=== PATIENT | female | born 1980 | race American Indian/Alaskan Native ===

== ENCOUNTER 2021-08-05 20:26 | Emergency (ER) | payer SELFPAY ==
[2021-08-06] MEDS ORDERED: SODIUM CHLORIDE 0.9% 1000 ML 1,000 ML IV ONE (01:25)
[2021-08-06] MEDS ORDERED: ONDANSETRON 4 MG/2 ML INJ IV ONE (01:25)
[2021-08-06] MEDS ORDERED: MORPHINE 4 MG/1 ML INJ IV ONE (01:25)
[2021-08-06 02:22] LABS: Alanine Aminotransferase 14 units/L (7-56); Albumin 3.4 g/dL (3.9-5); Blood Urea Nitrogen 7 mg/dL (7-17); Calcium 7.8 mg/dL (8.4-10.2); Hemolysis Index 12
[2021-08-06 02:41] LABS: Hematocrit 32.2 % (30.3-42.9); Hemoglobin 10.7 gm/dl (10.1-14.3); Mean Corpuscular HGB Conc 33 % (30-34); Mean Corpuscular Volume 82 fl (79-97); Platelet Count 448 K/mm3 (140-440); Red Blood Count 3.95 M/mm3 (3.65-5.03); Red Cell Distribution Width 27.8 % (13.2-15.2)
[2021-08-06 02:44] LABS: BUN/Creatinine Ratio 12
[2021-08-06 03:42] LABS: Bilirubin,Urine NEG (Negative); Color,Urine Yellow (Yellow)
[2021-08-06 03:43] LABS: Bacteria,Urine 1+ /HPF (Negative); Blood,Urine MOD (Negative); Urobilinogen,Urine < 2.0 mg/dL (<2.0)
--- NOTE | 2021-08-06 03:55 | Cat Scan Report ---
CT ABDOMEN AND PELVIS WITH CONTRAST INDICATION / CLINICAL INFORMATION: abdominal pain, N/V. TECHNIQUE: Axial CT images were obtained through the abdomen and pelvis after IV contrast. All CT sc ans at this location are performed using CT dose reduction for [facility] by means of automated exposure c ontrol. COMPARISON: None available. FINDINGS: LOWER CHEST: No significant abnormality. LIVER: Large with fatty infiltration. GALLBLADDER: No significant abnormality. BILE DUCTS: No significant abnormality. PANCREAS: No significant abnormality. SPLEEN: No significant abnormality. ADRENALS: No significant abnormality. RIGHT KIDNEY / URETER: No significant abnormality. LEFT KIDNEY / URETER: No significant abnormality. STOMACH / SMALL BOWEL: No significant abnormality. COLON: Scattered right colonic fluid without wall thickening. APPENDIX: Nonvisualized. PERITONEUM: No free fluid. No free air. No fluid collection. LYMPH NODES: No significant adenopathy. VASCULAR STRUCTURES: No significant abnormality. URINARY BLADDER: No significant abnormality. REPRODUCTIVE ORGANS: Uterine enlargement. 4 cm low density lesion at the fundus. Faint 5.5 cm lesion centrally. A pedunculated fibroid at the fundus measures 3 cm. ADDITIONAL FINDINGS: None. SKELETAL SYSTEM: No significant abnormality. IMPRESSION: 1. Possible gastroenteritis-type process. 2. Large uterus containing multiple lesions. These are likely fibroids. A fibroid at the fundus appea rs degenerated. Signer Name: Carroll Hassan MD Signed: 08/06/2021 3:51 AM Workstation Name: [id number]
--- NOTE | 2021-08-06 04:08 | Emergency Department Report ---
ED Abdominal Pain HPI - General Chief Complaint: Abdominal Pain Stated Complaint: ABD PAIN Source: patient Mode of arrival: Ambulatory Limitations: No Limitations - History of Present Illness Initial Comments: Patient is a 40-year-old -[place] female with a history of hypertension, chronic uterine fibroids and asthma who presents to the ED with complaint of acute onset persistent diffuse abdominal pain, worse in the suprapubic area with intractable nausea and vomiting diarrhea for the last 4 days. Patient states that her symptoms got worse in the last 24 hours. Patient states that she was unable to sleep in the last 6 hours because of worsening pain. Patient denies fever, chills, dizziness, syncope, chest pain, shortness of breath, dysuria, urinary frequency and urgency, vaginal bleeding, vaginal discharge or low back pain. MD Complaint: abdominal pain, other (nausea, vomiting and diarrhea; pelvic pain) -: Sudden, days(s) (4) Location: diffuse, suprapubic Radiation: none Migration to: periumbilical, suprapubic Severity: severe Severity scale (0 -10): 10 Quality: cramping, aching, sharp Consistency: constant Improves With: nothing Worsens With: eating, vomiting Context: possible food poisoning Associated Symptoms: denies other symptoms, nausea, vomiting, diarrhea, anorexia. denies: fever, chills, constipation, dysuria, hematemesis, hematochezia, melena, hematuria, syncope - Related Data LMP Date: 08/01/21 Previous Rx's Medication Instructions Recorded Last Taken Type Famotidine [Pepcid] 20 mg PO BID #40 tablet 08/06/21 Unknown Rx Ibuprofen [Motrin] 800 mg PO Q8HR PRN #30 tablet 08/06/21 Unknown Rx Ondansetron [Zofran Odt] 4 mg PO Q6HR PRN #20 tab.rapdis 08/06/21 Unknown Rx traMADoL [Ultram] 50 mg PO Q6HR PRN #12 tablet 08/06/21 Unknown Rx Allergies Allergy/AdvReac Type Severity Reaction Status Date / Time Sulfa (Sulfonamide Allergy Unknown Verified 08/05/21 21:25 Antibiotics) ED Review of Systems ROS: Stated complaint: ABD PAIN Other details as noted in HPI Constitutional: denies: chills, fever Eyes: denies: eye pain, eye discharge, vision change ENT: denies: ear pain, throat pain Respiratory: denies: cough, shortness of breath, wheezing Cardiovascular: denies: chest pain, palpitations Endocrine: no symptoms reported Gastrointestinal: abdominal pain, nausea, vomiting, diarrhea Genitourinary: denies: urgency, dysuria, discharge Musculoskeletal: denies: back pain, joint swelling, arthralgia Skin: denies: rash, lesions Neurological: denies: headache, weakness, paresthesias Psychiatric: denies: anxiety, depression Hematological/Lymphatic: denies: easy bleeding, easy bruising ED Past Medical Hx - Past Medical History Previous Medical History?: Yes Hx Hypertension: Yes Hx Asthma: Yes Additional medical history: fibroids, bronchitis - Surgical History Past Surgical History?: Yes Additional Surgical History: breast reduction - Medications Home Medications: Home Medications Medication Instructions Recorded Confirmed Last Taken Type Famotidine [Pepcid] 20 mg PO BID #40 tablet 08/06/21 Unknown Rx Ibuprofen [Motrin] 800 mg PO Q8HR PRN #30 tablet 08/06/21 Unknown Rx Ondansetron [Zofran Odt] 4 mg PO Q6HR PRN #20 tab.rapdis 08/06/21 Unknown Rx traMADoL [Ultram] 50 mg PO Q6HR PRN #12 tablet 08/06/21 Unknown Rx ED Physical Exam - General Limitations: No Limitations General appearance: alert, in no apparent distress - Head Head exam: Present: atraumatic, normocephalic, normal inspection - Eye Eye exam: Present: normal appearance, PERRL, EOMI Pupils: Present: normal accommodation - ENT ENT exam: Present: normal exam, normal orophraynx, mucous membranes moist, TM's normal bilaterally, normal external ear exam - Neck Neck exam: Present: normal inspection, full ROM. Absent: tenderness - Respiratory Respiratory exam: Present: normal lung sounds bilaterally. Absent: respiratory distress, wheezes, rales, rhonchi, chest wall tenderness, accessory muscle use, decreased breath sounds, prolonged expiratory - Cardiovascular Cardiovascular Exam: Present: regular rate, normal rhythm. Absent: systolic murmur, diastolic murmur, rubs, gallop - GI/Abdominal GI/Abdominal exam: Present: soft, tenderness (Palpable diffuse abdominal tenderness, worse on the suprapubic area), normal bowel sounds. Absent: guarding, rebound, hyperactive bowel sounds, hypoactive bowel sounds, bruit, pulsatile mass, hernia - Bi-manual exam: Present: other (Pelvic exam deferred at this time) - Extremities Exam Extremities exam: Present: normal inspection, full ROM, normal capillary refill. Absent: tenderness, pedal edema, joint swelling, calf tenderness - Back Exam Back exam: Present: normal inspection, full ROM. Absent: tenderness, CVA tenderness (R), CVA tenderness (L), muscle spasm, paraspinal tenderness, vertebral tenderness - Neurological Exam Neurological exam: Present: alert, oriented X3, CN II-XII intact, normal gait, reflexes normal - Psychiatric Psychiatric exam: Present: normal affect, normal mood - Skin Skin exam: Present: warm, dry, intact, normal color. Absent: rash ED Course Vital Signs 08/06/21 02:02 Respiratory 16 Rate ED Medical Decision Making - Lab Data Result diagrams: 08/06/21 01:43 08/06/21 01:43 - Radiology Data Radiology results: report reviewed, [place] [address] Cat Scan Report Signed Patient: RANULFO CARABALLO MR#: [id number] : 1980 Acct:[id number] Age/Sex: 40 / F ADM Date: 08/05/21 Loc: ED Attending Dr: Ordering Physician: ERIKA GRIMES Date of Service: 08/06/21 Procedure(s): CT abdomen pelvis w con Accession Number(s): [id number] cc: ERIKA GRIMES CT ABDOMEN AND PELVIS WITH CONTRAST INDICATION / CLINICAL INFORMATION: abdominal pain, N/V. TECHNIQUE: Axial CT images were obtained through the abdomen and pelvis after IV contrast. All CT scans at this location are performed using CT dose reduction for [facility] by means of automated exposure control. COMPARISON: None available. FINDINGS: LOWER CHEST: No significant abnormality. LIVER: Large with fatty infiltration. GALLBLADDER: No significant abnormality. BILE DUCTS: No significant abnormality. PANCREAS: No significant abnormality. SPLEEN: No significant abnormality. ADRENALS: No significant abnormality. RIGHT KIDNEY / URETER: No significant abnormality. LEFT KIDNEY / URETER: No significant abnormality. STOMACH / SMALL BOWEL: No significant abnormality. COLON: Scattered right colonic fluid without wall thickening. APPENDIX: Nonvisualized. PERITONEUM: No free fluid. No free air. No fluid collection. LYMPH NODES: No significant adenopathy. VASCULAR STRUCTURES: No significant abnormality. URINARY BLADDER: No significant abnormality. REPRODUCTIVE ORGANS: Uterine enlargement. 4 cm low density lesion at the fundus. Faint 5.5 cm lesion centrally. A pedunculated fibroid at the fundus measures 3 cm. ADDITIONAL FINDINGS: None. SKELETAL SYSTEM: No significant abnormality. IMPRESSION: 1. Possible gastroenteritis-type process. 2. Large uterus containing multiple lesions. These are likely fibroids. A fibroid at the fundus appears degenerated. Signer Name: Carroll Hassan MD Signed: 08/06/2021 3:51 AM Workstation Name: [id number] Transcribed By: JOYCE Dictated By: Carroll Hassan MD Electronically Authenticated By: Carroll Hassan MD Signed Date/Time: 08/06/21350 DD/ 4 TD/TT: Print - Medical Decision Making This is a 40-year-old -[place] female with a history of hypertension, chronic uterine fibroids and asthma who presents to the ED with complaint of acute onset persistent diffuse abdominal pain, worse in the suprapubic area with intractable nausea and vomiting diarrhea for the last 4 days. Patient states that her symptoms got worse in the last 24 hours. Patient states that she was unable to sleep in the last 6 hours because of worsening pain. In the ED, patient is alert and oriented x3 and is not in any distress. Patient however appears to be in significant pain. Patient was treated for pain in the ED, also received normal saline 1 L IV bolus x1. Patient also received antiemetics. Lab test results were reviewed and showed leukocytosis of 26,300, and urinalysis is unremarkable. The rest of the lab test results are nonactionable. Abdomen pelvis CT scan with contrast showed possible gastroenteritis-type process. It also showed a large uterus containing multiple lesions. These are likely fibroids. A fibroid at the fundus appears degenerated. On reevaluation, patient's pain is well controlled medications. All other differential diagnoses were considered including appendicitis, cholelithiasis, kidney stones, UTI, diverticulitis, colitis and gastroenteritis. Patient's leukocytosis is likely due to intractable nausea and vomiting for the last 4 days. Patient was discharged home on medications and advised to maintain a clear liquid diet for 12 to 24 hours, drink plenty of fluids, take medications and pain medications as needed and to follow-up with her primary care physician in 5 to 7 days for reevaluation or return to the ED immediately if symptoms get worse. - Differential Diagnosis Appendicitis; cholelithiasis; UTI; diverticulitis; colitis; gastroenteritis Critical care attestation.: If time is entered above; I have spent that time in minutes in the direct care of this critically ill patient, excluding procedure time. ED Disposition Clinical Impression: Abdominal pain in female patient, Nausea, vomiting and diarrhea, Gastroenteritis Uterine fibroid Qualifiers: Uterine leiomyoma location: intramural and subserous Qualified Code(s): D25.1 - Intramural leiomyoma of uterus; D25.2 - Subserosal leiomyoma of uterus Disposition: HOME / SELF CARE / HOMELESS Is pt being admited?: No Does the pt Need Aspirin: No Condition: Stable Instructions: Abdominal Pain (ED), Uterine Fibroids, [id number], Viral Gastroenteritis, Adult, [id number], Abdominal Pain, Adult, [id number], Nause a and Vomiting, Adult, [id number] Additional Instructions: All lab test results were reviewed and are all nonactionable except for leukocytosis of 26,300 whose etiology is likely reactive due to intractable nausea and vomiting versus gastroenteritis. Abdomen pelvis CT scan with contrast showed possible gastroenteritis-type process. It also showed a large uterus containing multiple lesions. These are likely fibroids. A fibroid at the fundus appears degenerated. Maintain a clear liquid diet for 12 to 24 hours while taking medications for nausea and vomiting and pain. Therefore take medications with food, drink plenty of fluids and follow-up with your primary care physician in 5 to 7 days for reevaluation. Return to the ED immediately if symptoms get worse. Prescriptions: Ibuprofen [Motrin] 800 mg PO Q8HR PRN #30 tablet PRN Reason: Pain , Severe (7-10) Famotidine [Pepcid] 20 mg PO BID #40 tablet traMADoL [Ultram] 50 mg PO Q6HR PRN #12 tablet PRN Reason: Pain Ondansetron [Zofran Odt] 4 mg PO Q6HR PRN #20 tab.rapdis PRN Reason: Nausea Referrals: [facility] [Provider Group] - 7-10 days Time of Disposition: 04:23 Print Language: LAO
[2021-08-06 04:57] LABS: Anisocytosis 1+; Basophils % (Manual) 0 % (0.0-1.8); Eosinophils % (Manual) 0 % (0.0-4.3); Monocytes % (Manual) 2.5 % (0.0-7.3); Platelet Estimate Consistent w Auto; Total Cells Counted 200
== END 2021-08-06 05:31 | disposition home or self-care (01) ==
LOC: ED 20:26
DX: D25.9 Leiomyoma of uterus, unspecified (principal); K52.9 Noninfective gastroenteritis and colitis, unspecified; I10 Essential (primary) hypertension; J45.909 Unspecified asthma, uncomplicated; Z98.890 Other specified postprocedural states; Z88.2 Allergy status to sulfonamides; Z79.899 Other long term (current) drug therapy
CPT/HCPCS: 36415; 74177; 80053; 81001; 82140; 83690; 84703; 85007; 85025; 87040; 96361; 96374; 96375; 99284; J2270; J2405; J7030; Q9967; Q0162